=== PATIENT | male | born 1985 | race African-American/Black ===

== ENCOUNTER 2021-10-10 12:41 | Emergency (ER) | payer OTHER, BC | END 2021-10-10 14:28 | disposition home or self-care (01) | LOC: ERS 12:41 | DX: M79.642 Pain in left hand (principal); F17.210 Nicotine dependence, cigarettes, uncomplicated; X50.3XXA Overexertion from repetitive movements, initial encounter; Y92.79 Other farm location as the place of occurrence of the external cause ==